=== PATIENT | female | born 1985 | race Caucasian/White ===

== ENCOUNTER → 2018-07-27 | Outpatient (CLI) | payer OTHER ==
[2015-09-09 06:08] VITALS: BP 134/73
--- NOTE | 2018-07-27 14:57 | KCIC ---
CHEST PA LATERAL History: Asthma, acute exacerbation, cough, shortness of air, wheezing Comparison: None. Findings: 2 views of the chest are submitted. There is no infiltrate, pneumothorax, or effusion. The cardiac silhouette is within normal limits in size. The trachea is in the midline. No acute osseous abnormality is identified. Impression: 1. There is no radiographic evidence of acute cardiopulmonary disease. Electronically signed by: Abkar Rodriguez MD (07/27/2018 2:53 PM) [facility]
== END | disposition home or self-care (01) ==
LOC: KCIC 14:32
PROVIDERS: ATTEND Family Medicine
DX: J45.41 Moderate persistent asthma with (acute) exacerbation (principal)
CPT/HCPCS: 71046

== ENCOUNTER 2019-09-17 21:59 | Emergency (ER) | payer OTHER ==
[~2019-09-17] VITALS: Ht 149.9 cm; Wt 72.6 kg
[2019-09-17 22:15] VITALS: BP 135/74
--- NOTE | 2019-09-17 22:41 | PHYS DOC ---
Past Medical History Past Medical History: Asthma Past Surgical History: Additional Past Surgical Histo: adenoids Alcohol Use: Occasionally Drug Use: None Adult General Chief Complaint Chief Complaint: FLU SYMPTOM HPI HPI 34-year-old female presents to the emergency Department complaints of fever 10 1.2, patient states she took Tylenol around 7:30. She describes loss of her voice over the last day, no nausea, vomiting, + headache and body aches are positive, she does have a cough nonproductive. Nothing makes symptoms worse, nothing makes symptoms better on exam. She is concerned about influenza. Review of Systems Review of Systems Constitutional: + fever Eyes: Denies change in visual acuity, redness, or eye pain [] HENT: loss voice Respiratory: Denies cough or shortness of breath [] Cardiovascular: No additional information not addressed in HPI [] GI: Denies abdominal pain, nausea, vomiting, bloody stools or diarrhea [] : Denies dysuria or hematuria [] Musculoskeletal: Denies back pain or joint pain [] Integument: Denies rash or skin lesions [] Neurologic: + headache, no focal weakness or sensory changes [] All other systems were reviewed and found to be within normal limits, except as documented in this note. Allergies Allergies Allergies Coded Allergies Type Severity Reaction Last Updated Verified No Known Drug Allergies 09/09/15 No Physical Exam Physical Exam Constitutional: Well developed, well nourished, non-toxic appearance. [] HENT: Normocephalic, atraumatic, bilateral external ears normal, oropharynx moist, no oral exudates, nose normal. [] Eyes: PERRLA, EOMI, conjunctiva normal, no discharge. [] Neck: Normal range of motion, no tenderness, supple, no stridor. [] Cardiovascular:Heart rate regular rhythm, no murmur [] Lungs & Thorax: Bilateral breath sounds clear to auscultation [] Skin: Warm, dry, no erythema, no rash. [] Back: No tenderness, no CVA tenderness. [] Extremities: No tenderness, no edema. [] Neurologic: Alert and oriented X 3, no focal deficits noted. [] Psychologic: Affect normal, judgement normal, mood normal. [] Current Patient Data Vital Signs Vital Signs Date Time Temp Pulse Resp B/P (MAP) Pulse Ox O2 Delivery O2 Flow Rate FiO2 09/17/19 22:15 98.2 97 18 135/74 (94) 98 Room Air 98.2 Lab Values Laboratory Tests Test 09/17/19 22:25 Influenza Type A Antigen Negative (NEGATIVE) Influenza Type B Antigen Negative (NEGATIVE) EKG EKG [] Radiology/Procedures Radiology/Procedures [] Course & Med Decision Making Course & Med Decision Making Pertinent Labs and Imaging studies reviewed. (See chart for details) []34-year-old female presents to the emergency Department complaints of fever 101.2, patient states she took Tylenol around 7:30. She describes loss of her voice over the last day, no nausea, vomiting, + headache and body aches are positive, she does have a cough nonproductive. Nothing makes symptoms worse, nothing makes symptoms better on exam. She is concerned about influenza. Influenza negative for A/B Recommend symptomatic treatment (motrin/tylenol as needed) Return precautions provided, discussed with patient Dragon Disclaimer Dragon Disclaimer This electronic medical record was generated, in whole or in part, using a voice recognition dictation system. Departure Departure Impression: Primary Impression: Flu-like symptoms Disposition: 01 HOME, SELF-CARE Condition: STABLE Referrals: SOCORRO STOCK MD (PCP) Patient Instructions: Viral Syndrome Additional Instructions: Recommend follow up with PCP 3 - 5 days Return to the ER with worsening symptoms, intractable pain, fever, altered mental status Tylenol/Motrin as needed for pain BRENT SANTIZO MD Sep 17, 2019 22:41
[2019-09-17 22:47] LABS: INFLUENZA A PATIENT NEGATIVE (NEGATIVE); INFLUENZA B PATIENT NEGATIVE (NEGATIVE)
== END 2019-09-17 23:20 | disposition home or self-care (01) ==
LOC: ER 21:59
DX: R50.9 Fever, unspecified (principal); R51 Headache; R05 Cough; R49.1 Aphonia; J45.909 Unspecified asthma, uncomplicated; Z98.890 Other specified postprocedural states
CPT/HCPCS: 87804; 99284

== ENCOUNTER → 2019-10-08 | Outpatient (CLI) | payer OTHER ==
[2019-09-17 22:15] VITALS: BP 135/74
[2019-10-08 15:34] LABS: ALBUMIN 3.9 g/dL (3.4-5.0); ALBUMIN/GLOBULIN RATIO 1.2 (1.0-1.7); CALCIUM 8.9 mg/dL (8.5-10.1); CREATININE 0.9 mg/dL (0.6-1.0); GFR 72.6; POTASSIUM 3.9 mmol/L (3.5-5.1); TOTAL BILIRUBIN 0.4 mg/dL (0.2-1.0); TOTAL PROTEIN 7.1 g/dL (6.4-8.2)
[2019-10-08 15:35] LABS: CHOLESTEROL/HDL RATIO 5.3
== END | disposition home or self-care (01) ==
LOC: LAB 14:28
PROVIDERS: ATTEND Psychiatry & Neurology Neurology with Special Qualifications in Child Neurology
DX: G47.10 Hypersomnia, unspecified (principal)
CPT/HCPCS: 36415; 80053; 80061; 84436; 84443

== ENCOUNTER 2019-11-14 19:00 | Emergency (ER) | payer OTHER ==
[~2019-11-14] VITALS: Ht 149.9 cm; Wt 75.0 kg
[2019-11-14 20:14] LABS: INFLUENZA A PATIENT POSITIVE (NEGATIVE); INFLUENZA B PATIENT NEGATIVE (NEGATIVE)
[2019-11-14 20:43] VITALS: BP 136/62
[2019-11-14] MEDS: DEXAMETHASONE 4 MG TABLET PO STA (21:12)
[2019-11-14] MEDS: IPRATRPIUM/ALBUTEROL 0.5/2.5MG 3 ML NEBU. NEB ONE (21:21)
--- NOTE | 2019-11-14 21:21 | RAD ---
CHEST PA LATERAL Technique: PA and lateral views of the chest were obtained. Clinical History: Cough and fever Comparison: July 27, 2018. Findings: The heart and pulmonary vasculature appear within normal limits. The lungs are clear. The pleural margins are clear. Impression: No acute chest process is seen. Electronically signed by: Alfredo Huynh III, MD (11/14/2019 9:18 PM) [facility]
[2019-11-14] MEDS ORDERED: OSEL75CA PO (21:35)
[2019-11-14] MEDS ORDERED: BENZ100C PO (21:35)
[2019-11-14] MEDS ORDERED: ONDA4TAB12 PO (21:35)
[2019-11-14] MEDS ORDERED: METH4TAB2 PO (21:35)
--- NOTE | 2019-11-14 21:35 | PHYS DOC ---
Past Medical History Past Medical History: Asthma, Depression (JEANETTE SHAW APRN) Past Surgical History: Additional Past Surgical Histo: adenoids (JEANETTE SHAW APRN) Alcohol Use: None Drug Use: None (JEANETTE SHAW APRN) Attending Signature I have participated in the care of this patient and I have reviewed and agree with all pertinent clinical information above including history, exam, and recommendations. (BRENT SANTIZO MD) Adult General Chief Complaint Chief Complaint: FLU SYMPTOM HPI HPI Patient is a 34 year old female who presents with fever, loss of appetite, body aches, nausea, vomiting, sore throat, runny nose, cough that started on Monday evening. Patient has been able to drink water at home. Patient has been short of breath as well. She has a history of asthma. Denies any other complaints. Complete ROS were reviewed and found to be within normal limits, except as documented in the HPI (JEANETTE SHAW APRN) Current Medications Current Medications Current Medications Medications (Trade) Dose Ordered Sig/Barbie Start Time Stop Time Status Last Admin Dose Admin Albuterol/ Ipratropium (Duoneb) 3 ml 1X ONCE 11/14/19 21:15 11/14/19 21:16 DC 11/14/19 21:21 3 ML Dexamethasone (Decadron) 10 mg 1X STAT 11/14/19 21:05 11/14/19 21:07 DC 11/14/19 21:12 10 MG (BRENT SANTIZO MD) Allergies Allergies Allergies Coded Allergies Type Severity Reaction Last Updated Verified No Known Drug Allergies 09/09/15 No (BRENT SANTIZO MD) Physical Exam Physical Exam Constitutional: Well developed, well nourished, no acute distress, non-toxic appearance. [] HENT: Normocephalic, atraumatic, bilateral external ears normal, oropharynx moist, no oral exudates, nose turbinates are inflamed. Eyes: PERRLA, EOMI, conjunctiva normal, no discharge. [] Neck: Normal range of motion, supple Cardiovascular:Heart rate regular rhythm, no murmur [] Lungs & Thorax: Bilateral breath sounds have diffuse wheezing throughout. Skin: Warm, dry, no erythema, no rash. [] Neurologic: Alert and oriented X 3, normal motor function, normal sensory function, no focal deficits noted. [] Psychologic: Affect normal, judgement normal, mood normal. [] (JEANETTE SHAW APRN) Current Patient Data Vital Signs Vital Signs Date Time Temp Pulse Resp B/P (MAP) Pulse Ox O2 Delivery O2 Flow Rate FiO2 11/14/19 21:21 97 Room Air 11/14/19 20:43 99.0 130 20 136/62 (86) 99.0 (BRENT SANTIZO MD) Lab Values Laboratory Tests Test 11/14/19 19:10 Influenza Type A Antigen Positive (NEGATIVE) Influenza Type B Antigen Negative (NEGATIVE) (BRENT SANTIZO MD) EKG EKG [] (JEANETTE SHAW APRN) Radiology/Procedures Radiology/Procedures [][facility] [address] [place] [address] IMAGING REPORT Signed PATIENT: JEREL RAMIREZCCOUNT: [id number] : 1985 LOCATION: ER AGE: 34 SEX: F EXAM STATUS: REG ER ORD. PHYSICIAN: JEANETTE SHAW APRN REASON: cough, fever PROCEDURE: CHEST PA & LATERAL CHEST PA LATERAL Technique: PA and lateral views of the chest were obtained. Clinical History: Cough and fever Comparison: July 27, 2018. Findings: The heart and pulmonary vasculature appear within normal limits. The lungs are clear. The pleural margins are clear. Impression: No acute chest process is seen. Electronically signed by: Matt Queen III, MD (11/14/2019 9:18 PM) [facility] DICTATED and SIGNED BY: MATT QUEEN III, MD DATE: 11/14/192117 (JEANETTE SHAW APRN) Course & Med Decision Making Course & Med Decision Making Pertinent Labs and Imaging studies reviewed. (See chart for details) The patient appears to have the Flu clinically. Discussed with patient the importance of drinking plenty of fluids. I also discussed the importance of rest. It was discussed with the patient that she is contagious and to stay away from others until it has been a week since the start of her symptoms. Discussed with the patient that she can take Zyrtec per label instructions for runny nose. Also discussed the proper control of fever by rotating Tylenol and Ibuprofen at home. Will give the patient Decadron in the ER for symptom control. Will also prescribe Zofran for nausea. Will also prescribe Tamiflu. Will prescribe Medrol dose pack for Asthma. Patient breath sounds have improved after breathing treatment. (JEANETTE SHAW APRN) Dragon Disclaimer Dragon Disclaimer This electronic medical record was generated, in whole or in part, using a voice recognition dictation system. (JEANETTE SHAW APRN) Departure Departure Impression: Primary Impression: Influenza A Additional Impression: Asthma exacerbation Disposition: HOME, SELF-CARE Condition: STABLE Referrals: SOCORRO STOCK MD (PCP) Patient Instructions: Asthma, Acute Bronchospasm, Influenza A (H1N1) Additional Instructions: Thank you for visiting [facility]. We appreciate you trusting us with your care. If any additional problems come up don't hesitate to return to visit us. Please follow up with your primary care provider so they can plan additional care if needed and know about the problem that you had. If symptoms worsen come back to the Emergency Department. Any concerning symptoms that start such as chest pain, shortness of air, weakness or numbness on one side of the body, running high fevers or any other concerning symptoms return to the ER. Please fill your medications at any pharmacy and follow the prescription instructions. Please drink plenty of fluids. If unable to keep fluids down please return to ER. Please get Tylenol and Ibuprofen over the counter. Give each medication every 6 hours as directed by the medication labels. In order to utilize the peak of the medications stagger the medications to where the child is getting one of the medications every 3 hours. For example if you give Ibuprofen at 3 PM, you then give Tylenol at 6 PM and Ibuprofen again at 9 PM, and then Tylenol at midnight. Please get Zyrtec over the counter and take per label instructions for runny nose. Scripts Benzonatate (TESSALON PERLE) 100 Mg Capsule 100 MG PO TID PRN for COUGH, #21 CAP Prov: JEANETTE SHAW APRN 11/14/19 Oseltamivir Phosphate (TAMIFLU) 75 Mg Capsule 75 MG PO BID for FLU for 5 Days, #10 TAB 0 Refills Prov: JEANETTE SHAW APRN 11/14/19 Ondansetron (ONDANSETRON ODT) 4 Mg Tab.rapdis 1 TAB PO PRN Q6-8HRS PRN for NAUSEA, #16 TAB Prov: VALERIAJEANETTE HEAD COOK 11/14/19 Methylprednisolone (MEDROL) 4 Mg Tab.ds.pk 1 PKG PO UD, #1 PKG Prov: VALERIAJEANETTE HEAD COOK 11/14/19 Problem Qualifiers Additional Impression: Asthma exacerbation Asthma severity: moderate Asthma persistence: unspecified Qualified Codes: J45.901 - Unspecified asthma with (acute) exacerbation JEANETTE SHAW APRN Nov 14, 2019 21:35 BRENT SANTIZO MD Nov 15, 2019 00:55
== END 2019-11-14 21:45 | disposition home or self-care (01) ==
LOC: ER 19:00
DX: J10.1 Influenza due to other identified influenza virus with other respiratory manifestations (principal); J45.901 Unspecified asthma with (acute) exacerbation; R11.2 Nausea with vomiting, unspecified; R50.9 Fever, unspecified; R63.0 Anorexia; R09.89 Other specified symptoms and signs involving the circulatory and respiratory systems; R05 Cough; F32.9 Major depressive disorder, single episode, unspecified; Z98.890 Other specified postprocedural states
CPT/HCPCS: 71046; 87804; 94640; 99285; J7620; J8540

== ENCOUNTER → 2019-12-16 | Outpatient (CLI) | payer OTHER ==
[~2019-12-16] MED LIST: BENZ100C PO; METH4TAB2 PO; ONDA4TAB12 PO; OSEL75CA PO
--- NOTE | 2019-12-18 12:12 | SLEEP ---
DATE OF STUDY: 12/17/2019 OBJECTIVE: The patient is a 34-year-old female with excessive somnolence. Please also see the separate polysomnogram report from the night before. INTERPRETATION: The mean sleep latency is 18.9 minutes. REM sleep is observed on 1 of the 5 naps. Sleep latency on nap 1 is 16.0 minutes, nap 2 is 20 minutes, nap 3 is 20 minutes, nap 4 is 18.5 minutes, nap 5 is 20 minutes. IMPRESSION: This multiple sleep latency test shows no evidence of pathological sleepiness. Thank you for letting us to help with the patient's care. LAURA ENCINAS MD DR: EDNA/sandra JOB#: [id number] / [id number] SOCORRO Pierson MD
--- NOTE | 2019-12-18 12:30 | SLEEP ---
DATE OF STUDY: 12/16/2019 OBJECTIVE: The patient is a 34-year-old female with excessive sleepiness, rule out narcolepsy. The polysomnogram was performed the night before the multiple sleep latency tests to rule out other causes of sleepiness. Height 5 feet 0 inches, weight 165 pounds, body mass index 33. Garland sleep score 22. INTERPRETATION: Sleep architecture is characterized by sleep efficiency of 94% across the 7.2 hours of recording time. Stage volumes are appropriate for age. Sleep onset latency is 8.5 minutes. Respiratory monitoring shows a total of 21 events for an apnea-hypopnea index of 3.1 events per hour of sleep. Minimum oxygen saturation is 90%. No significant periodic limb movements of sleep or cardiac arrhythmias are observed. IMPRESSION: Normal polysomnogram showing an insignificant amount of sleep apnea and there are no other causes of excessive daytime somnolence, found on the study. Please also see separate multiple sleep latency test report. LAURA ENCINAS MD DR: EDNA/sandra JOB#: [id number] / [id number] SOCORRO Pierson MD
== END ==
LOC: SLPLAB 19:07
PROVIDERS: ATTEND Family Medicine
DX: G47.10 Hypersomnia, unspecified (principal)
CPT/HCPCS: 95805; 95810

== ENCOUNTER → 2020-06-11 | Outpatient (CLI) | payer OTHER ==
[2020-06-11 15:05] LABS: BASO # 0.1 x10^3/uL (0.0-0.2); BASO % 1 % (0-3); EOS # 2.2 x10^3/uL (0.0-0.7); EOS % 26 % (0-3); HEMATOCRIT 40.8 % (36.0-47.0); HEMOGLOBIN 13.9 g/dL (12.0-15.5); LYMPH # 2.2 x10^3/uL (1.0-4.8); LYMPH % 26 % (24-48); MEAN CORPUSCULAR HEMOGLOBIN 31 pg (25-35); MEAN CORPUSCULAR HGB CONC 34 g/dL (31-37); MEAN CORPUSCULAR VOLUME 91 fL (79-100); MONO # 0.6 x10^3/uL (0.0-1.1); MONO % 7 % (0-9); NEUT # 3.4 x10^3/uL (1.8-7.7); NEUT % 40 % (31-73); PLATELET COUNT 202 x10^3/uL (140-400); RED CELL DISTRIBUTION WIDTH 12.5 % (11.5-14.5); WHITE BLOOD COUNT 8.4 x10^3/uL (4.0-11.0)
[2020-06-11 15:26] LABS: ALBUMIN 3.5 g/dL (3.4-5.0); ALBUMIN/GLOBULIN RATIO 1.1 (1.0-1.7); ALK PHOS 49 U/L (46-116); ALT (SGPT) 15 U/L (14-59); ANION GAP 8 (6-14); AST (SGOT) 13 U/L (15-37); BLOOD UREA NITROGEN 11 mg/dL (7-20); BUN/CREATININE RATIO 11 (6-20); C-REACTIVE PROTEIN < 0.5 mg/L (0-3.3); CALCIUM 8.3 mg/dL (8.5-10.1); CARBON DIOXIDE 28 mmol/L (21-32); CHLORIDE 106 mmol/L (98-107); GFR 64.3; GLUCOSE 97 mg/dL (70-99); LACTATE DEHYDROGENASE 159 U/L (81-234); POTASSIUM 4.1 mmol/L (3.5-5.1); SODIUM 142 mmol/L (136-145); TOTAL BILIRUBIN 0.4 mg/dL (0.2-1.0); TOTAL PROTEIN 6.7 g/dL (6.4-8.2)
[2020-06-11 15:34] LABS: PREG TEST PT QUAL NEGATIVE (NEG)
[2020-06-11 15:46] LABS: % EOS 22 % (0-5); % LYMPHS 37 % (24-48); % MONOS 8 % (0-10); % SEGS 33 % (35-66); PLT ESTIMATE ADEQUATE (ADEQUATE)
== END | disposition home or self-care (01) ==
LOC: LAB 14:27
PROVIDERS: ATTEND Family Medicine
DX: R11.2 Nausea with vomiting, unspecified (principal); R10.9 Unspecified abdominal pain
CPT/HCPCS: 36415; 80053; 83615; 84703; 85007; 85025; 86140

== ENCOUNTER → 2020-06-16 | Outpatient (CLI) | payer OTHER ==
--- NOTE | 2020-06-16 16:59 | RAD ---
ABDOMEN COMPLETE History: Reason: N/V/ABD PAIN / Spl. Instructions: / History: Comparison: None. Technique: Sonographic examination of the abdomen was performed and multiple grayscale and color Doppler static images were obtained. Findings: Liver demonstrates normal echogenicity. The liver measures 14.6 cm. Portal flow is patent. Common bile duct measures 1.4 mm in diameter. Gallbladder wall is normal. No cholelithiasis or pericholecystic fluid. Visualized pancreas is homogeneous. The right kidney measures 10.2 x 4.4 x 4.3 cm. No hydronephrosis. The left kidney measures 10.6 x 4.8 x 4.3 cm. No hydronephrosis. The spleen measures 12.3 cm. Visualized portions of the abdominal aorta and IVC are normal. IMPRESSION: 1. Unremarkable abdominal ultrasound. Electronically signed by: Papo Sultana DO (06/16/2020 4:56 PM) [facility]
== END | disposition home or self-care (01) ==
LOC: US 15:41
PROVIDERS: ATTEND Family Medicine
DX: R11.2 Nausea with vomiting, unspecified (principal); R10.9 Unspecified abdominal pain
CPT/HCPCS: 76700

== ENCOUNTER 2020-06-17 19:13 | Emergency (ER) | payer OTHER ==
[~2020-06-17] VITALS: Ht 149.9 cm; Wt 75.9 kg
--- NOTE | 2020-06-17 23:19 | PHYS DOC ---
Past Medical History Past Medical History: Asthma, Depression (JOHNNY IVAN CREW LEADER) Past Surgical History: Additional Past Surgical Histo: adenoids (JOHNNY IVAN CREW LEADER) Smoking Status: Former Smoker Alcohol Use: Occasionally Drug Use: None (JOHNNY IVAN APRN) General Adult EDM: Chief Complaint: ABDOMINAL PAIN HPI: HPI: Patient is a 35 year old female who presents with the last 2 weeks she has had epigastric abdominal pain and bloating after she eats any food. States the pain will also radiate around to her flanks. She also has nausea but no vomiting. She denies diarrhea, fever, dysuria, chest pain, shortness of air, vaginal discharge, cough, vomiting, numbness or tingling, headache, dizziness, syncope. Currently having no pain. She states earlier today she ate 1 Oreo. States the last time she had any Zofran was yesterday. She stated that her doctor just switched her from omeprazole to pantoprazole. She states she does feel nauseated. Patient states that her primary care ordered her an ultrasound for her abdomen and it came back showing no acute findings. (JOHNNY IVAN CREW LEADER) Review of Systems: Review of Systems: Constitutional: Denies fever or chills. [] Eyes: Denies change in visual acuity. [] HENT: Denies nasal congestion or sore throat. [] Respiratory: Denies cough or shortness of breath. [] Cardiovascular: Denies chest pain or edema. [] GI: abdominal pain after eating, +nausea, +vomiting, denies bloody stools or diarrhea. [] : Denies dysuria. [] Musculoskeletal: Bilateral back pain or joint pain. [] Integument: Denies rash. [] Neurologic: Denies headache, focal weakness or sensory changes. [] Endocrine: Denies polyuria or polydipsia. [] Lymphatic: Denies swollen glands. [] Psychiatric: Denies depression or anxiety. [] (JOHNNY IVAN CREW LEADER) Heart Score: Risk Factors: Risk Factors: DM, Current or recent (<one month) smoker, HTN, HLP, family history of CAD, obesity. Risk Scores: Score 0 - 3: 2.5% MACE over next 6 weeks - Discharge Home Score 4 - 6: 20.3% MACE over next 6 weeks - Admit for Clinical Observation Score 7 - 10: 72.7% MACE over next 6 weeks - Early Invasive Strategies (MONCHOBRITTANYJOHNNYDANISHA Parker APRN) Current Medications: Current Medications Medications (Trade) Dose Ordered Sig/Barbie Start Time Stop Time Status Last Admin Dose Admin Famotidine (Pepcid Vial) 20 mg 1X ONCE 06/17/20 23:15 06/17/20 23:16 UNV Ondansetron HCl (Zofran) 4 mg 1X ONCE 06/17/20 23:15 06/17/20 23:16 UNV Sodium Chloride 1,000 ml @ 1,000 mls/hr Q1H 06/17/20 23:09 06/18/20 00:08 UNV (AMITAJOHNNY APRN) Allergies: Allergies: Allergies Coded Allergies Type Severity Reaction Last Updated Verified No Known Drug Allergies 09/09/15 No (AMITAJOHNNYDANISHA Parker APRN) Physical Exam: PE: Constitutional: Well developed, well nourished, no acute distress, non-toxic appearance. [] HENT: Normocephalic, atraumatic, bilateral external ears normal, oropharynx moist, no oral exudates, nose normal. [] Eyes: PERRLA, EOMI, conjunctiva normal, no discharge. [] Neck: Normal range of motion, no tenderness, supple, no stridor. [] Cardiovascular:Heart rate regular rhythm, no murmur [] Lungs & Thorax: Bilateral breath sounds clear to auscultation [] Abdomen: Bowel sounds normal, soft, no tenderness, no masses, no pulsatile masses. [] Skin: Warm, dry, no erythema, no rash. [] Back: No tenderness, no CVA tenderness. [] Extremities: No tenderness, no cyanosis, no clubbing, ROM intact, no edema. [] Neurologic: Alert and oriented X 3, normal motor function, normal sensory function, no focal deficits noted. [] Psychologic: Affect normal, judgement normal, mood normal. Normal physical exam [] (AMITAJOHNNYDANISHA Parker APRN) Current Patient Data: Vital Signs: Vital Signs Date Time Temp Pulse Resp B/P (MAP) Pulse Ox O2 Delivery O2 Flow Rate FiO2 06/17/20 22:25 98.1 100 18 136/62 (86) 98 Room Air 98.1 (JOHNNY IVAN APRN) EKG: EKG: [] (JOHNNY IVAN APRN) Radiology/Procedures: Radiology/Procedures: [] (JOHNNY IVAN APRN) Radiology/Procedures: [facility] [address] [place] [address] IMAGING REPORT Signed PATIENT: JEREL RAMIREZOUNT: [id number] : 1985 LOCATION: ER AGE: 35 SEX: F EXAM STATUS: REG ER ORD. PHYSICIAN: JOHNNY IVAN APRN REASON: ABD PAIN WHEN EATING, NAUSEA PROCEDURE: CT ABD PELV W/ IV CONTRST ONLY Study: CT abdomen/pelvis with intravenous contrast Indication: Abdominal pain. Nausea. Comparison: No prior CT. Technique: Helical CT imaging performed of the abdomen and pelvis after the intravenous administration of 75 cc Omnipaque 300 contrast. Sagittal and coronal reformats were obtained. One or more of the following individualized dose reduction techniques were utilized for this examination: 1. Automated exposure control 2. Adjustment of the mA and/or kV according to patient size 3. Use of iterative reconstruction technique. Findings: Chest: Unremarkable. Liver: Trace fatty infiltration adjacent to the falciform ligament. Gallbladder/Biliary Tree: Within normal limits. Pancreas: Unremarkable. Spleen: Normal in size. Adrenal Glands: Unremarkable. Kidneys/Ureters/Bladder: Unremarkable. Reproductive Organs: Intrauterine contraceptive device appearing normally positioned. The ovaries are within normal limits for patient age to include a small cyst on the right, image 27 series 4. Colon: No acute abnormality. The cecum extends into the deep pelvis. Appendix: Normal as seen on image 52 series 2. Small Bowel: No findings of obstruction. The proximal to mid aspect of the third segment of the duodenum is distended and subsequently becomes smaller in caliber but this is not related to superior mesenteric artery compression and is felt within the broad range of normal. Stomach: Unremarkable. Vasculature: Unremarkable. Lymph Nodes: Within normal limits. Peritoneum and Body Wall: No significant volume free fluid. No free air. Bones: No acute abnormality or advanced degenerative changes. Miscellaneous: None. Impression: 1. No acute abnormality seen to account for the patient's symptoms. 2. Intrauterine contraceptive device appearing normally positioned. Electronically signed by: VINCENZO GARCÍA MD (06/18/2020 2:28 AM) [id number] DICTATED and SIGNED BY: VINCENZO GARCÍA MD DATE: 06/18/20227 (SHREE BROWN DO) Course & Med Decision Making: Course & Med Decision Making Pertinent Labs and Imaging studies reviewed. (See chart for details) Alert and oriented x4. Ambulatory with a steady gait. Patient states she is lost 10 pounds because she is not been able to eat food. Speaks in full complete sentences. Skin pink warm and dry. Vital signs within normal limits. Abdomen is soft and nontender. No CVA tenderness. 0120: I have reported this patient off to Dr Brown [] (JOHNNY IVAN APRN) Dragon Disclaimer: Dragon Disclaimer: This electronic medical record was generated, in whole or in part, using a voice recognition dictation system. (JOHNNY IVAN APRN) Dragon Disclaimer: 0100 care of patient assumed by me at close of nurse petitioner shift. We are waiting the results of the CT scan 0300 CT scan results now known. Patient is medically stable. He is unremarkable blood results and urinalysis. Patient also a recent ultrasound which was unremarkable for acute cholecystitis. Close follow-up recommended (SHREE BROWN DO) Departure Departure Impression: Primary Impression: Upper abdominal pain Disposition: HOME, SELF-CARE Condition: STABLE Referrals: SOCORRO STOCK MD (PCP) Patient Instructions: Abdominal Pain Additional Instructions: [place] diet, no spicy foods, do not eat late at night. Call and see your doctor right a follow-up. Your lab work, urinalysis and CT scan abdomen pelvis results are unremarkable Justicifation of Admission Dx: Justifications for Admission: Justification of Admission Dx: N/A (JOHNNY IVAN APRN) Justification of Admission Dx: N/A (SHREE BROWN DO) JOHNNY IVAN APRN Jun 17, 2020 23:19 SHREE BROWN DO Jun 18, 2020 03:03
[2020-06-17 23:20] LABS: BILIRUBIN,URINE SMALL (NEG); CLARITY,URINE CLEAR; NITRITE,URINE NEGATIVE (NEG); PH,URINE 5.5 (<5.0-8.0); PROTEIN,URINE NEGATIVE (NEG-TRACE); UROBILINOGEN,URINE 0.2 mg/dL (0.2 mg/dL)
[2020-06-17 23:26] LABS: BACTERIA,URINE MODERATE /HPF (0-FEW); COLOR,URINE DK YELLOW; SQUAMOUS EPITHELIAL CELL,UR MOD /LPF
[2020-06-17 23:30] LABS: RBC,URINE 0 /HPF (0-2); WBC,URINE RARE /HPF (0-4)
[2020-06-17] MEDS ORDERED: FAMOTIDINE 20 MG/2 ML VIAL IVP ONE (23:30)
[2020-06-17] MEDS ORDERED: ONDANSETRON PF 4 MG/2 ML VIAL. IVP ONE (23:30)
[2020-06-17] MEDS ORDERED: IV NORMAL SALINE 1000ML BAG 1,000 ML IV SCH (23:30)
[2020-06-17 23:34] LABS: BARBITURATES NEG (NEG); BENZODIAZEPINES NEG (NEG); CANNABINOIDS NEG (NEG); COCAINE NEG (NEG); METHADONE NEG (NEG); OPIATES NEG (NEG); PHENCYCLIDINE NEG (NEG)
[2020-06-17 23:36] LABS: AMPHETAMINE/METHAMPHETAMINE NEG (NEG)
[2020-06-18 00:10] LABS: BASO # 0.1 x10^3/uL (0.0-0.2); BASO % 1 % (0-3); EOS # 1.5 x10^3/uL (0.0-0.7); EOS % 15 % (0-3); HEMATOCRIT 40.3 % (36.0-47.0); HEMOGLOBIN 14.1 g/dL (12.0-15.5); LYMPH # 3.2 x10^3/uL (1.0-4.8); LYMPH % 31 % (24-48); MEAN CORPUSCULAR HEMOGLOBIN 32 pg (25-35); MEAN CORPUSCULAR HGB CONC 35 g/dL (31-37); MEAN CORPUSCULAR VOLUME 90 fL (79-100); MONO # 0.7 x10^3/uL (0.0-1.1); MONO % 6 % (0-9); NEUT # 4.8 x10^3/uL (1.8-7.7); NEUT % 47 % (31-73); PLATELET COUNT 220 x10^3/uL (140-400); RED BLOOD COUNT 4.47 x10^6/uL (3.50-5.40); RED CELL DISTRIBUTION WIDTH 12.4 % (11.5-14.5); WHITE BLOOD COUNT 10.2 x10^3/uL (4.0-11.0)
[2020-06-18 00:20] LABS: CALCIUM 8.8 mg/dL (8.5-10.1); CREATININE 0.9 mg/dL (0.6-1.0); GFR 72.1; POTASSIUM 4.3 mmol/L (3.5-5.1)
[2020-06-18 00:21] LABS: PROTHROMBIN TIME PATIENT 12.3 SEC (11.7-14.0)
[2020-06-18 00:25] LABS: ALBUMIN 3.8 g/dL (3.4-5.0); ALBUMIN/GLOBULIN RATIO 1.2 (1.0-1.7); TOTAL BILIRUBIN 0.4 mg/dL (0.2-1.0)
[2020-06-18] MEDS ORDERED: IV NORMAL SALINE 1000ML BAG 1,000 ML IV ONE (00:30)
[2020-06-18] MEDS ORDERED: CONTRAST GIVEN. MC PRN (00:30)
[2020-06-18] MEDS ORDERED: IOHEXOL 300 MG/ML 100ML VIAL. IV ONE (01:00)
[2020-06-18 01:53] VITALS: BP 91/55
[2020-06-18 01:58] LABS: U PREG PATIENT NEGATIVE (NEG)
--- NOTE | 2020-06-18 02:31 | RAD ---
Study: CT abdomen/pelvis with intravenous contrast Indication: Abdominal pain. Nausea. Comparison: No prior CT. Technique: Helical CT imaging performed of the abdomen and pelvis after the intravenous administration of 75 cc Omnipaque 300 contrast. Sagittal and coronal reformats were obtained. One or more of the following individualized dose reduction techniques were utilized for this examination: 1. Automated exposure control 2. Adjustment of the mA and/or kV according to patient size 3. Use of iterative reconstruction technique. Findings: Chest: Unremarkable. Liver: Trace fatty infiltration adjacent to the falciform ligament. Gallbladder/Biliary Tree: Within normal limits. Pancreas: Unremarkable. Spleen: Normal in size. Adrenal Glands: Unremarkable. Kidneys/Ureters/Bladder: Unremarkable. Reproductive Organs: Intrauterine contraceptive device appearing normally positioned. The ovaries are within normal limits for patient age to include a small cyst on the right, image 27 series 4. Colon: No acute abnormality. The cecum extends into the deep pelvis. Appendix: Normal as seen on image 52 series 2. Small Bowel: No findings of obstruction. The proximal to mid aspect of the third segment of the duodenum is distended and subsequently becomes smaller in caliber but this is not related to superior mesenteric artery compression and is felt within the broad range of normal. Stomach: Unremarkable. Vasculature: Unremarkable. Lymph Nodes: Within normal limits. Peritoneum and Body Wall: No significant volume free fluid. No free air. Bones: No acute abnormality or advanced degenerative changes. Miscellaneous: None. Impression: 1. No acute abnormality seen to account for the patient's symptoms. 2. Intrauterine contraceptive device appearing normally positioned. Electronically signed by: VINCENZO GARCÍA MD (06/18/2020 2:28 AM) [id number]
[2020-06-18 04:38] LABS: % EOS 10 % (0-5); % LYMPHS 39 % (24-48); % MONOS 9 % (0-10); % SEGS 42 % (35-66); PLT ESTIMATE ADEQUATE (ADEQUATE)
== END 2020-06-18 04:15 | disposition home or self-care (01) ==
LOC: ER 19:13
DX: R10.13 Epigastric pain (principal); R14.0 Abdominal distension (gaseous); R11.0 Nausea; J45.909 Unspecified asthma, uncomplicated; Z87.891 Personal history of nicotine dependence
CPT/HCPCS: 36415; 74177; 80053; 80307; 81001; 81025; 83690; 85007; 85025; 85610; 87086; 96361; 96374; 96375; 99285; J2405; J3490; J7030; Q9967

== ENCOUNTER → 2021-08-08 | Outpatient (CLI) | payer OTHER | LOC: LAB 09:31 | PROVIDERS: ATTEND Internal Medicine Pulmonary Disease | DX: R05.9 Cough, unspecified (principal); R06.02 Shortness of breath; R50.9 Fever, unspecified; J02.9 Acute pharyngitis, unspecified; R51.9 Headache, unspecified; M79.10 Myalgia, unspecified site; R53.81 Other malaise; R19.7 Diarrhea, unspecified; R09.81 Nasal congestion; Z20.822 Contact with and (suspected) exposure to COVID-19 | CPT/HCPCS: U0003; U0005 ==

== ENCOUNTER 2021-08-14 07:29 | Emergency (ER) | payer OTHER ==
[~2021-08-14] VITALS: Ht 149.9 cm; Wt 81.2 kg
--- NOTE | 2021-08-14 07:54 | PHYS DOC ---
Past Medical History Past Medical History: Asthma, Depression Past Surgical History: Additional Past Surgical Histo: adenoids Smoking Status: Former Smoker Alcohol Use: Occasionally Drug Use: None General Adult HPI: HPI: Patient is a 36 year old female with a history of asthma who presents with 8 days of cough. Symptoms started on 08/06 with cough and fever. Ran a fever up to 102 F for the first 4 days of illness. No fever since. Has had persistent cough since then. Had negative Covid testing (08/08) and influenza testing in the first few days of illness. Was treated with a course of a Z-Nolan and a 5-day course of prednisone, but symptoms have persisted. Only medication is as needed albuterol. Denies significant shortness of breath. Denies chest pain. Does endorse some very mild chest soreness only with cough. She is vaccinated with [employer]. Second shot was in October 2020. 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 Review of Systems: Review of Systems: Constitutional: Denies current fever or chills. [] Eyes: Denies change in visual acuity. [] HENT: Denies nasal congestion or sore throat. [] Respiratory: Reports cough. Denies shortness of breath. [] Cardiovascular: Denies chest pain or edema. [] GI: Denies abdominal pain, nausea, vomiting, bloody stools or diarrhea. [] : Denies dysuria. [] Musculoskeletal: Denies back pain or joint pain. [] Integument: Denies rash. [] Neurologic: Denies headache, focal weakness or sensory changes. [] Endocrine: Denies polyuria or polydipsia. [] Lymphatic: Denies swollen glands. [] Psychiatric: Denies depression or anxiety. [] Heart Score: C/O Chest Pain: No Allergies: Allergies: Allergies Coded Allergies Type Severity Reaction Last Updated Verified No Known Drug Allergies 09/09/15 No Physical Exam: PE: Constitutional: Well developed, well nourished, no acute distress, non-toxic appearance. [] HENT: Normocephalic, atraumatic, bilateral external ears normal, oropharynx moist, no oral exudates, nose normal. [] Eyes: conjunctiva normal, no discharge. [] Neck: Normal range of motion, no tenderness, supple, no stridor. [] Cardiovascular:Heart rate regular rhythm, no murmur [] Lungs & Thorax: Frequent coughing. Bilateral breath sounds clear to auscultation. Normal work of breathing. Satting 99% on room air. [] Skin: Warm, dry, no erythema, no rash. [] Extremities: No tenderness, no cyanosis, no clubbing, ROM intact, no edema. [] Neurologic: Alert and oriented X 3, normal motor function, normal sensory function, no focal deficits noted. [] Psychologic: Affect normal, judgement normal, mood normal. [] EKG: EKG: [] Radiology/Procedures: Radiology/Procedures: [] Impression: [facility] [address] [place], [place] [id number] IMAGING REPORT Signed PATIENT: JEREL RAMIREZOUNT: [id number] : 1985 LOCATION: ER AGE: 36 SEX: F EXAM STATUS: REG ER ORD. PHYSICIAN: NILESH GERMAIN MD REASON: cough, fever PROCEDURE: CHEST AP ONLY AP portable chest radiograph 08/14/2021 Clinical History: Cough and fever. An AP erect portable digital radiograph of the chest was obtained. Comparison study is dated 11/14/2019. The cardiac and mediastinal silhouettes are within normal limits in size and configuration. No pulmonary infiltrate is seen. No pleural effusion or pneumothorax is noted. The osseous structures are grossly intact. Impression: No acute abnormality is seen. Electronically signed by: Topher Santacruz MD (08/14/2021 8:29 AM) [id number] DICTATED and SIGNED BY: TOPHER SANTACRUZ MD DATE: 08/14/21 [id number] 0 Course & Med Decision Making: Course & Med Decision Making Pertinent Labs and Imaging studies reviewed. (See chart for details) Patient a 36-year-old female who presents with 8 days of cough. Had negative Covid and influenza testing early on in her illness when she was febrile. s/p zpack and 5 day prednisone course without improvement. On arrival is afebrile, vital signs stable, satting 99% on room air with normal work of breathing. She is very persistently coughing in the exam room. We will reswab Covid rapid and PCR, and check a chest x-ray for any signs of a lower respiratory tract infection. 0752 COVID rapid is negative. CXR is clear. Vitals have remained stable. Feel likely viral bronchitis. Do not feel abx or steroids are indicated at this time. 2955 Tion Disclaimer: Dragon Disclaimer: This electronic medical record was generated, in whole or in part, using a voice recognition dictation system. Departure Departure Impression: Primary Impression: Cough Disposition: HOME / SELF CARE / HOMELESS Condition: STABLE Referrals: SOCORRO STOCK MD (PCP) Additional Instructions: Your chest x-ray was clear and your rapid Covid test was negative. Your PCR Covid test should be resulted by tomorrow, and is much more accurate test. Please self isolate until you know the results of your PCR Covid test. You can try [id number] antitussive medications, and use what works for you. Please follow-up with your primary care doctor next week if your symptoms persist. Return to the ED if you experience shortness of breath, chest pain, or return of high fevers. NILESH GERMAIN MD Aug 14, 2021 07:54
[2021-08-14] MEDS ORDERED: BENZONATATE 100 MG CAPSULE. PO ONE (08:15)
--- NOTE | 2021-08-14 08:32 | RAD ---
AP portable chest radiograph 08/14/2021 Clinical History: Cough and fever. An AP erect portable digital radiograph of the chest was obtained. Comparison study is dated 11/14/2019. The cardiac and mediastinal silhouettes are within normal limits in size and configuration. No pulmon kita infiltrate is seen. No pleural effusion or pneumothorax is noted. The osseous structures are shan sly intact. Impression: No acute abnormality is seen. Electronically signed by: Topher Santacruz MD (08/14/2021 8:29 AM) [id number]
[2021-08-14 08:44] VITALS: BP 113/65
--- NOTE | 2021-08-16 11:01 | NUR ---
IP: Informed pt of negative covid test. pt verbalized understanding.
== END 2021-08-14 09:05 | disposition home or self-care (01) ==
LOC: ER 07:29
DX: R05.9 Cough, unspecified (principal); Z20.822 Contact with and (suspected) exposure to COVID-19; R50.9 Fever, unspecified; R07.89 Other chest pain; R06.02 Shortness of breath; J45.909 Unspecified asthma, uncomplicated; Z87.891 Personal history of nicotine dependence
CPT/HCPCS: 71045; 87426; 99284; U0003; U0005

== ENCOUNTER → 2021-11-03 | Outpatient (CLI) | payer OTHER | LOC: LAB 12:07 | PROVIDERS: ATTEND Internal Medicine Pulmonary Disease | DX: U07.1 COVID-19 (principal) | CPT/HCPCS: U0003; U0005 ==

== ENCOUNTER → 2022-03-17 | Outpatient (CLI) | payer OTHER ==
[2022-03-17 12:58] LABS: ALBUMIN 3.7 g/dL (3.4-5.0); ALBUMIN/GLOBULIN RATIO 1.1 (1.0-1.7); CALCIUM 8.7 mg/dL (8.5-10.1); CHOLESTEROL/HDL RATIO 5.3; CREATININE 0.9 mg/dL (0.6-1.0); GFR 71.7; POTASSIUM 4.1 mmol/L (3.5-5.1); TOTAL BILIRUBIN 0.3 mg/dL (0.2-1.0)
== END ==
LOC: LAB 12:07
PROVIDERS: ATTEND Family Medicine
DX: F39 Unspecified mood [affective] disorder (principal); E78.5 Hyperlipidemia, unspecified; G47.00 Insomnia, unspecified
CPT/HCPCS: 36415; 80053; 80061; 83721; 84443